=== PATIENT | male | born 1990 | race Caucasian/White ===

== ENCOUNTER 2022-04-10 09:49 | Outpatient (REF) | payer OTHER, BC, SELFPAY ==
[2022-04-10 11:05] LABS: MANUAL DIFF FLAG NO
[2022-04-10 11:11] LABS: Basophils Absolute Auto 0.1 X10*3/uL (0.0-0.2); Eosinophils Absolute Auto 0.2 X10*3/uL (0.0-0.4); Eosinophils Percent Auto 4.4 % (0-4); Hematocrit 40.5 % (42.0-52.0); Hemoglobin 14.6 g/dl (14.0-18.0); Imm Gran Abs Auto 0.01 X10*3/uL (0.00-0.03); Imm Gran Pct Auto 0.2 % (0.0-0.4); Lymphocytes Absolute Auto 1.2 X10*3/uL (1.2-4.9); Lymphocytes Percent Auto 24.5 % (20-40); Mean Corpuscular Hemoglobin 30.7 pg (27.0-33.0); Mean Corpuscular Volume 85.3 fL (80.0-98.0); Mean Platelet Volume 10.5 fL (9.4-12.4); Monocytes Absolute Auto 0.3 X10*3/uL (0.1-1.2); Monocytes Percent Auto 5.6 % (2-11); Neutrophils Absolute Auto 3.2 x10*3/uL (2.0-8.3); Neutrophils Percent Auto 64.3 % (45-73); Platelet Count 310 X10*3/uL (160-400); Red Blood Count 4.75 X10*6/uL (4.60-5.80); Red Cell Distribution Width 11.9 % (11.0-16.0)
[2022-04-10 11:36] LABS: Alanine Aminotransferase 41 U/L (0-40); Albumin Level 4.8 g/dL (3.5-5.0); Alkaline Phosphatase 61 U/L (39-117); Anion Gap 15 (12-20); Aspartate Amino Transferase 23 U/L (5-37); Bilirubin Total 0.5 mg/dL (0.0-1.0); Blood Urea Nitrogen 18 mg/dL (9-16); Calcium 10.3 mg/dL (8.4-10.2); Carbon Dioxide 29 mmol/L (22-29); Chloride 105 mmol/L (96-108); Estimated Glomerular Filt Rate > 60; Glucose Random 101 mg/dL (60-115); Magnesium 2.2 mg/dL (1.6-2.6); Potassium 4.9 mmol/L (3.3-5.1); Sodium 144 mmol/L (135-145); Total Protein 7.7 g/dL (6.5-8.0)
[2022-04-10 11:58] LABS: Free T4 (Free Thyroxine) 1.04 ng/dL (0.71-1.85); Thyroid Stimulating Hormone 0.95 uIU/mL (0.32-4.0); Vitamin D 25-OH Total 42.4 ng/mL (>30)
[2022-04-10 12:56] LABS: Vitamin B12 396 pg/mL (200-900)
[2022-04-17 07:22] LABS: Testosterone, Free 82.3 pg/mL (35.0-155.0); Testosterone, Total 538 ng/dL (250-1100)
== END 2022-04-10 09:50 | disposition home or self-care (01) ==
LOC: HO.MANLDS 09:49
PROVIDERS: Visit Provider Physician Assistant
DX: R53.83 Other fatigue (principal)
CPT/HCPCS: 36415; 80053; 82306; 82607; 82746; 83735; 84402; 84403; 84439; 84443; 85025

== ENCOUNTER 2022-06-30 19:07 | Emergency (ER) | payer OTHER, SELFPAY ==
[2022-06-30 19:22] VITALS: BMI 25.8
--- NOTE | 2022-06-30 19:22 | ED_ITS ---
HPI - Wound/Laceration General Chief Complaint: Wound/Laceration Stated Complaint: Finger lac Time Seen by Provider: 06/30/22 19:21 Source: patient Mode of arrival: ambulatory Limitations: no limitations History of Present Illness HPI narrative: Rachael is a 31 yo male patient with no PMHx who presents to the emergency department with a CC of lacerations on his right hand after cutting them on the shower head hose while helping his kids in the bath. He indicates some pain and the sites are actively bleeding but there is no decreased in mobility and no loss of sensation. He denies any other complaints or concerns and has no other associated symptoms. He is right-handed. Onset (ago): hour(s) Location: other Extremity Location: right: hand Place: home Patient tetanus UTD: No Context: accidental Associated symptoms: pain Treatments prior to arrival: bandage Related Data Allergies Allergy/AdvReac Type Severity Reaction Status Date / Time No Known Allergies Allergy Verified 06/30/22 19:29 Review of Systems Review of Systems: Yes all other systems are reviewed and are negative Constitutional: Constitutional: Reports no additional constitutional complaints, Denies body ache(s), Denies chills, Denies fever(s), Denies headache(s) and Denies weakness Eyes: Eyes: Reports no additional eye complaints and Denies change in vision ENT: Reports system reviewed and no additional complaints, except as documented, Denies dizziness, Denies headache(s), Denies nasal congestion, Denies nasal discharge and Denies neck pain Cardiovascular: Cardiovascular: Reports no additional cardiovascular complaints, Denies chest pain, Denies leg edema and Denies dyspnea Respiratory: Respiratory: Reports no additional respiratory complaints, Denies cough and Denies dyspnea Gastrointestinal: Gastrointestinal: Reports no additional gastrointestinal complaints, Denies abdominal pain, Denies diarrhea, Denies nausea and Denies vomiting Genitourinary: Genitourinary: Denies urinary incontinence Musculoskeletal: Musculoskeletal: Reports no additional musculoskeletal complaints, Denies back pain, Denies arthralgias, Denies joint swelling, Denies neck pain, Denies numbness and Denies tingling Integumentary/Breasts: Skin/Breast: Reports system reviewed and no additional complaints, except as docu, Denies rash and Reports wounds Comments: lacerations and abrasions on right thumb and middle finger Neurologic: Reports system reviewed and no additional complaints, except as documented, Denies Abnormal speech present, Denies dizziness, Denies headac he(s), Denies numbness, Denies tingling and Denies weakness PMFSH Past Medical History Attestation statement: The following information was validated with the patient. Social History Social History Advance Directives: No Advance Directives Information Provided: No Physical Exam Vital Signs: Vital Signs: Last Vital Signs Temp 98.0 F 06/30/22 19:25 Pulse 80 06/30/22 19:25 Resp 18 06/30/22 19:25 BP 140/92 H 06/30/22 19:25 Pulse Ox 98 06/30/22 19:25 O2 Del Method 06/30/22 19:25 BMI result Body Mass Index 25.8 Const: General: cooperative, healthy appearing, comfortable and no acute dis tress Orientation/consciousness: patient oriented x3 Limitations: no limitations HEENT: Head: Yes normal to inspection Ears: hearing grossly normal bilaterally General nose exam: Normal external nose present Face and sinus: Yes normal facial exam Mouth: Normal oral and palatal mucosa present Throat: Yes posterior oropharynx normal Eyes: General: appearance normal, both eyes and all related structures Pupils: Equal, round and reactive pupils present Neck: Neck: Yes normal visual inspection Chest: Chest palpation & inspection: normal inspection of the chest Resp: Effort & Inspection: normal respiratory effort Auscultation: clear to auscultation bilaterally Cardio: Rate: regular rate Rhythm: regular rhythm Peripheral pulses: Peripheral pulses 2+ throughout GI: Inspection: Yes normal to inspection Palpation (GI): Soft to palpation and nontender Auscultation: normal bowel sounds Back/Spine/Pelvis: Thoracic/Lumbar Spine: thoracic and lumbar spine normal to inspection Skin: Other: To the lateral aspect of the right thumb there is an flap like laceration approximately 1 cm the superficial with bleeding that is controlled. To the distal 4th digit on the right hand there is an avulsion which is small and superficial with no active bleeding Patient has full range of motion of all digits. Neurovascularly intact distally General skin exam: no rashes or lesions noted Trauma: abrasion and laceration (1.5right middle finger distal DIP near cuticle w/ bleeding) Neuro: General: patient oriented x3, no focal motor deficits and normal sensation to monofilament Cranial nerves: Yes Equal, round and reactive pupils present Cognition (Neuro): normal cognition Speech: No Abnormal speech present Gait exam (Neuro): Normal gait present Motor exam (neuro): 5/5 motor strength present throughout Extrem: General: Yes normal to inspection Course Course Course Narrative: Rachael is a 31 yo male with no PMHx presents to the emergency department after cutting himself while using the hose in his shower. PE was notable for a 1 cm flap laceration on the right middle finger distal to the DIP. He also had a smaller flap of skin on his right thumb.Thumb flap was clean thoroughly, glue was applied, and bandage was used. The laceration on his middle finger was closed with six simple interrupted 5-0 nylon sutures. No complications were noted during the procedure. Sterile technique was used. Pt was advised about proper wound care and will be back to remove sutures in 7-10 days. Medications Administered Discontinued Medications Generic Name Dose Route Start Last Admin Trade Name Freq PRN Reason Stop Dose Admin Lidocaine HCl 2 ml 06/30/22 19:26 06/30/22 19:37 Lidocaine Hcl 1 % Mpf 2 Ml Vial INFILTRATI 06/30/22 19:27 2 ml ONCE ONE Administration Lidocaine HCl 2 ml 06/30/22 19:26 06/30/22 19:38 Lidocaine Hcl 1 % Mpf 2 Ml Vial INFILTRATI 06/30/22 19:27 2 ml ONCE ONE Administration MDM - Wound/Laceration MDM Narrative Medical decision making narrative: Pt presented to the ED with a laceration on his right middle finger distal to the DIP and to the base of the right thumb as well as an abrasion to the distal 4th digit after cutting it off the hose in the shower. Pt has no other complaints. Pt right middle finger was cleaned thoroughly with betadine and received six simple interrupted 5-0 nylon sutures in middle finger with no complications. Sterile technique was used. Small flap on right thumb was cleaned thoroughly with betadine and closed with surgical glue, no complications noted. Pt was advised about proper wound care and was discharged home. Pt should return in 7-10 days for suture removal. Tetanus was updated Differential Diagnosis Differential diagnosis: Likely laceration and abrasion Medical Records Attestation: I reviewed the patient's medical records. Procedures Laceration Laceration 1: Site: other (right middle finger) Side (If applicable): right Size (cm): 1.5 Description: flap Depth: simple, single layer Local Anesthetic: lidocaine 1% Amount of anesthesia used (mL): 3 Pre-repair: irrigated extensively Skin layer closed with: nylon Size (cm): 5-0 Number of sutures: 6 Technique: simple, interrupted Laceration 2: Site: other (right thumb) Side (If applicable): right Size (cm): 1 Description: flap Depth: simple, single layer Pre-repair: irrigated extensively Technique: other (surgical glue) Nerve Block Nerve Block 1: Local Anesthetic: lidocaine 1% Amount of anesthesia used (mL): 3 Side: right Nerve Blocks: digital Procedure Successful: Yes Patient Tolerated Procedure: well Complications: none Discharge Plan Discharge Clinical Impression: Laceration Patient Disposition: Home, Self-Care Instructions: Finger Laceration (ED) Additional Instructions: sutures out in 7 -10 days wash with soap and water daily Referrals: Lewis Feldman MD [Primary Care Provider] - 10 days (as needed)
[2022-06-30 19:25] VITALS: BP 140/92; PULSE 80; RESP 18; TEMP 36.7; O2SAT 98; BMI 25.8
[2022-06-30] MEDS: Lidocaine HCl 1 % MPF 2 ML VIAL INFILTRATI ×2 (19:37→19:38)
[2022-06-30] MEDS: Diphth,Pertus(ACell),Tet Adult 0.5 ML SYRINGE IM (20:27)
== END 2022-06-30 20:44 | disposition home or self-care (01) ==
PROVIDERS: Emergency Provider Emergency Medicine Emergency Medical Services; PCP Internal Medicine
DX: S61.411A Laceration without foreign body of right hand, initial encounter (principal); W26.8XXA Contact with other sharp object(s), not elsewhere classified, initial encounter; Y93.E1 Activity, personal bathing and showering; Y92.012 Bathroom of single-family (private) house as the place of occurrence of the external cause; Y99.9 Unspecified external cause status
CPT/HCPCS: 12001; 90471; 90715; 99282; 99284

== ENCOUNTER 2023-10-23 16:13 | Outpatient (REF) | payer OTHER, SELFPAY ==
[2023-10-23 16:26] LABS: MANUAL DIFF FLAG NO
[2023-10-23 17:53] LABS: Basophils Percent Auto 0.6 % (0-2); Eosinophils Absolute Auto 0.2 X10*3/uL (0.0-0.4); Eosinophils Percent Auto 2.3 % (0-4); Hematocrit 39.7 % (42.0-52.0); Imm Gran Abs Auto 0.01 X10*3/uL (0.00-0.03); Imm Gran Pct Auto 0.1 % (0.0-0.4); Lymphocytes Absolute Auto 2.2 X10*3/uL (1.2-4.9); Lymphocytes Percent Auto 31.5 % (20-40); Mean Corpuscular HGB Conc 35.3 g/dl (31.0-36.0); Mean Corpuscular Hemoglobin 30.8 pg (27.0-33.0); Mean Corpuscular Volume 87.3 fL (80.0-98.0); Mean Platelet Volume 9.8 fL (9.4-12.4); Monocytes Absolute Auto 0.4 X10*3/uL (0.1-1.2); Neutrophils Absolute Auto 4.2 x10*3/uL (2.0-8.3); Neutrophils Percent Auto 59.5 % (45-73); Platelet Count 341 X10*3/uL (160-400); Red Blood Count 4.55 X10*6/uL (4.60-5.80); Red Cell Distribution Width 11.9 % (11.0-16.0)
[2023-10-23 18:11] LABS: Alanine Aminotransferase 35 U/L (0-40); Albumin Level 4.8 g/dL (3.5-5.0); Alkaline Phosphatase 55 U/L (39-117); Anion Gap 11 (12-20); Aspartate Amino Transferase 24 U/L (5-37); Bilirubin Total 0.4 mg/dL (0.0-1.0); Blood Urea Nitrogen 19 mg/dL (9-16); Calcium 9.6 mg/dL (8.4-10.2); Carbon Dioxide 28 mmol/L (22-29); Chloride 105 mmol/L (96-108); Cholesterol 170 mg/dL (<200); Estimated Glomerular Filt Rate > 60; Glucose Random 83 mg/dL (60-115); HDL Cholesterol 46 mg/dL (>40); LDL Cholesterol Calculated 106 mg/dL (<100); Potassium 3.8 mmol/L (3.3-5.1); Sodium 140 mmol/L (135-145); Total Protein 7.8 g/dL (6.5-8.0); Triglycerides 90 mg/dL (<150)
== END 2023-10-23 16:14 | disposition home or self-care (01) ==
LOC: HO.LAB 16:13
PROVIDERS: PCP Internal Medicine; Visit Provider Physician Assistant
DX: Z00.00 Encounter for general adult medical examination without abnormal findings (principal); Z20.2 Contact with and (suspected) exposure to infections with a predominantly sexual mode of transmission
CPT/HCPCS: 36415; 80053; 80061; 85025

== ENCOUNTER → 2024-08-28 15:23 | Outpatient (BNV) | payer OTHER, SELFPAY | PROVIDERS: PCP Internal Medicine; Visit Provider Radiology Diagnostic Radiology | DX: J20.9 Acute bronchitis, unspecified (principal) | CPT/HCPCS: 71046 ==